=== PATIENT | female | born 1960 | race Caucasian/White ===

== ENCOUNTER 2016-12-01 01:54 | Emergency (ER) | payer OTHER ==
[~2016-12-01] VITALS: Ht 170.2 cm; Wt 75.3 kg
[~2016-12-01 01:54] MED LIST: ALPRAZOLAM0.5 MG PO; ALPRAZOLAM1 MG PO; ATORVASTATIN CA10 MG PO; CALCIUM 600 +1 EAC6 PO; CIPRO500 MG PO; CLARITIN10 M2; CLINDAMYCIN HC300 MG PO; CYCLOBENZAPRINE10 MG PO; DAILY VITAMIN1 EAC2 PO; FLEXERIL5 MG PO; GABAPENTIN100 MG PO; GABAPENTIN300 MG PO; GLIPIZIDE XL10 MG PO; GLIPIZIDE XL5 MG PO; HYDROCHLOROTHIA25 MG PO; HYDROCODON-ACE1 EAC8 PO; LISINOPRIL40 MG PO; MACROBID 100 M100 MG PO; NORCO 10-325 T1 EACH PO; NORCO 5-325 TA1 EACH PO; OMEGA 3 1,0001 EACH PO; PRILOSEC10 MG; PRILOSEC20 MG PO; PROPRANOLOL HCL40 MG PO; PYRIDIUM200 MG PO; TIZANIDINE HCL4 MG PO; VALIUM5 MG PO
[2016-12-01] MEDS ORDERED: ROPINIROLE HCL1 MG PO (02:22)
[2016-12-01] MEDS ORDERED: ZOFRAN ODT4 MG PO (02:23)
[2016-12-01] MEDS ORDERED: KLOR-CON 1010 MEQ PO (02:26)
== END 2016-12-01 04:50 | disposition home or self-care (01) ==
LOC: ED 01:54
DX: E11.9 Type 2 diabetes mellitus without complications (principal); F15.20 Other stimulant dependence, uncomplicated; I10 Essential (primary) hypertension; E78.00 Pure hypercholesterolemia, unspecified; Z88.6 Allergy status to analgesic agent; Z91.040 Latex allergy status; Z88.8 Allergy status to other drugs, medicaments and biological substances; Z88.1 Allergy status to other antibiotic agents; Z79.899 Other long term (current) drug therapy
CPT/HCPCS: 80053; 81001; 85025; 96360; 99283; J7030

== ENCOUNTER 2018-11-21 11:36 | Emergency (ER) | payer OTHER ==
[~2018-11-21] VITALS: Ht 170.2 cm; Wt 79.4 kg
[~2018-11-21 11:36] MED LIST changes: +ADVOCATE SYRIN1 EAC1 MISC; +DOXYCYCLINE HY100 MG PO; +GUAIFEN-CODEINE10 ML PO; +KLOR-CON 1010 MEQ PO; +MEDROL4 M1 PO; +NOVOLOG FL100 UNIT/1 SUB-Q; +ROPINIROLE HCL1 MG PO; +VENTOLIN HFA18 GM INH; +ZOFRAN ODT4 MG PO
--- OUTSIDE RECORDS SUMMARY | 2018-11-21 11:40 | XMS ---
PreManage Notification: AYSHA HENRIQUEZ Security Product Representative Events No recent Security Events currently on file CRITERIA MET - [facility] CARE PROVIDERS There are no care providers on record at this time. Svetlana has no Care Guidelines for this patient. Addison VISIT COUNT (12 MO.) 1 [facility] ED 3 NE[facility]ardo TOTAL 4 NOTE: Visits indicate total known visits. ED/UCC VISIT TRACKING (12 MO.) 11/21/2018 11:38 [facility] [place] TYPE: Emergency COMPLAINT: - BLOOD IN URINE 03/20/2018 20:06 [facility] TYPE: Emergency COMPLAINT: - COUGH DIAGNOSES: - Allergy status to other drugs, medicaments and biological substances status - Latex allergy status - Essential (primary) hypertension - Type 2 diabetes mellitus without complications - Personal history of urinary (tract) infections - Allergy status to other antibiotic agents status - senior living (current) use of inhaled steroids - senior living (current) use of insulin - Cough - Bronchitis, not specified as acute or chronic - Allergy status to analgesic agent status - Other laborer marine terminal (current) drug therapy 03/13/2018 15:48 [facility] TYPE: Emergency COMPLAINT: - COLD SYMPTOMS/LOWER BACK PAIN DIAGNOSES: - Type 2 diabetes mellitus without complications - Allergy status to other antibiotic agents status - Other mcc (current) drug therapy - Pure hypercholesterolemia, unspecified - Bronchitis, not specified as acute or chronic - Allergy status to other drugs, medicaments and biological substances status - Cough - Allergy status to analgesic agent status - Latex allergy status - Essential (primary) hypertension 03/08/2018 20:26 [facility] TYPE: Emergency DIAGNOSES: - Contact with and (suspected) exposure to environmental tobacco smoke (acute) (chronic) - Acute bronchitis due to other specified organisms - Rash - COUGH INPATIENT VISIT TRACKING (12 MO.) No inpatient visits to display in this time frame [id number]
[2018-11-21] MEDS ORDERED: KEFLEX500 MG PO (14:16)
[2018-11-21] MEDS ORDERED: DIFLUCAN150 MG PO (14:16)
== END 2018-11-21 14:35 | disposition home or self-care (01) ==
LOC: ED 11:36
DX: N39.0 Urinary tract infection, site not specified (principal); E11.9 Type 2 diabetes mellitus without complications; I10 Essential (primary) hypertension; Z88.1 Allergy status to other antibiotic agents; Z88.6 Allergy status to analgesic agent; Z91.040 Latex allergy status; Z88.8 Allergy status to other drugs, medicaments and biological substances; Z79.4 Long term (current) use of insulin; Z79.899 Other long term (current) drug therapy
CPT/HCPCS: 81001; 87077; 87088; 87186; 99283

== ENCOUNTER 2019-01-24 12:33 | Emergency (ER) | payer OTHER ==
[~2019-01-24] VITALS: Ht 170.2 cm; Wt 74.8 kg
--- OUTSIDE RECORDS SUMMARY | ~2019-01-24 | XMS | Clinical Summary ---
Demographics + + + | Address | [address] | | | [place] [address] | + + + | Home Phone | | + + + | Preferred Language | Unknown | + + + | Marital Status | Single | + + + | Yazdanism Affiliation | [id number] | + + + | Race | Unknown | + + + | Ethnic Group | Unknown | + + + Author + + + | Author | [facility] (Historical as of | | | 11-15-18) | + + + | Organization | [facility] (Historical as of | | | 11-15-18) | + + + | Address | Unknown | + + + | Phone | Unavailable | + + + Support + + +---------+ + | Name | Relationship | Address | Phone | + + +---------+ + | Esha Jenkins | ECON | Unknown | | + + +---------+ + Care Team Providers + +------+ + | Care Genetics Teacher Name | Role | Phone | + +------+ + | None, Per Pt | PP | [phone] | + +------+ + Allergies + + + + + + | Active Allergy | Reactions | Severity | Noted | Comments | | | | | Date | | + + + + + + | Cefaclor | Swelling | Medium | 03/08/20 | Throat swelling | | | | | 18 | | + + + + + + | Morphine | Swelling | High | 03/08/20 | Throat swelling | | | | | 18 | | + + + + + + | Nsaids | Swelling | High | 03/08/20 | Throat closes | | | | | 18 | | + + + + + + | Prednisone | Rash | Medium | 03/08/20 | | | | | | 18 | | + + + + + + Current Medications + + +---------+---------+------+------+-------+ | Prescription | Sig. | Disp. | Refills | Star | End | Statu | | | | | | t | Date | s | | | | | | Date | | | + + +---------+---------+------+------+-------+ | lisinopril | Take 10 mg by mouth | | | | | Activ | | (ZESTRIL) 10 MG | daily. | | | | | e | | tablet | | | | | | | + + +---------+---------+------+------+-------+ | propranolol | Take 10 mg by mouth | | | | | Activ | | (INDERAL) 10 MG | 3 (three) times | | | | | e | | tablet | daily. | | | | | | + + +---------+---------+------+------+-------+ | predniSONE | Take 1 mg by mouth | | | | | Activ | | (DELTASONE) 1 MG | daily with | | | | | e | | tablet | breakfast. | | | | | | + + +---------+---------+------+------+-------+ | insulin glargine | Inject into the | | | | | Activ | | (LANTUS) 100 UNIT/ML | skin nightly. | | | | | e | | injection | | | | | | | + + +---------+---------+------+------+-------+ | benzonatate | Take 100 mg by mouth | | | | | Activ | | (TESSALON) 100 MG | 3 (three) times | | | | | e | | capsule | daily as needed for | | | | | | | | Cough. | | | | | | + + +---------+---------+------+------+-------+ | | Take 12.5 mg by | | | | | Activ | | hydrochlorothiazide | mouth daily. | | | | | e | | (HYDRODIURIL) 12.5 | | | | | | | | MG tablet | | | | | | | + + +---------+---------+------+------+-------+ | omeprazole | Take 10 mg by mouth | | | | | Activ | | (PRILOSEC) 10 MG | every morning before | | | | | e | | capsule | breakfast. | | | | | | + + +---------+---------+------+------+-------+ | albuterol | Inhale 1-2 puffs | 1 | 0 | 12/0 | 12/0 | Activ | | (PROVENTIL | into the lungs every | Inhaler | | 8/20 | 8/20 | e | | HFA;VENTOLIN HFA) | 4 (four) hours as | | | 18 | 19 | | | 108 (90 Base) | needed for Wheezing | | | | | | | MCG/ACT inhaler | or Shortness of | | | | | | | | Breath. | | | | | | + + +---------+---------+------+------+-------+ Active Problems Not on file Social History + +-------+ +--------+------+ | Tobacco Use | Types | Packs/Day | Years | Date | | | | | Used | | + +-------+ +--------+------+ | Never Smoker | | | | | + +-------+ +--------+------+ + +---+---+---+ | Smokeless Tobacco: | | | | | Never Used | | | | + +---+---+---+ + + +---------+ + | Alcohol Use | Drinks/We | oz/Week | Comments | | | ek | | | + + +---------+ + | No | | | | + + +---------+ + + + + | Sex Assigned at | Date Recorded | | | | + + + | Not on file | | + + + Last Filed Vital Signs + + + + | Vital Sign | Reading | Time Taken | + + + + | Blood Pressure | 164/73 | 03/08/2018 10:18 PM PST | + + + + | Pulse | 98 | 03/08/2018 10:18 PM PST | + + + + | Temperature | 37.1 C (98.8 F) | 03/08/2018 10:18 PM PST | + + + + | Respiratory Rate | 24 | 03/08/2018 10:18 PM PST | + + + + | Oxygen Saturation | 95% | 03/08/2018 10:18 PM PST | + + + + | Inhaled Oxygen | - | - | | Concentration | | | + + + + | Weight | 83.9 kg (184 lb 15.5 | 03/08/2018 8:46 PM PST | | | oz) | | + + + + | Height | 170.2 cm (5' 7") | 03/08/2018 8:46 PM PST | + + + + | Body Mass Index | 28.97 | 03/08/2018 8:46 PM PST | + + + + Plan of Treatment Not on file Results Not on filefrom Last 3 Months Insurance + +--------+ +------+-------+ + | Payer | Benefi | Subscriber | Type | Phone | Address | | | t Plan | ID | | | | | | / | | | | | | | Group | | | | | + +--------+ +------+-------+ + | MEDICAID | [place] | [id number] | | | [address] | | | N | | | | [place] | | | [place] | | | | [phone] | | | DAMPER MAKER | | | | | + +--------+ +------+-------+ + + +--------+ +--------+ + + | Guarantor Name | Accoun | Relation to | Date | Phone | Billing Address | | | t Type | Patient | of | | | | | | | | | | + +--------+ +--------+ + + | SABINE MADRIGAL | Person | Self [birth year] Home: | [address] | | | al/Fam | | 1960 | [phone] | [place] [address] | | | [place]urie | | | [phone] | | + +--------+ +--------+ + +
--- OUTSIDE RECORDS SUMMARY | ~2019-01-24 | XMS | Clinical Summary ---
Demographics + + + | Address | [address] | | | [place] [address] | + + + | Home Phone | | + + + | Preferred Language | Unknown | + + + | Marital Status | Single | + + + | Voodoo Affiliation | 1041 | + + + | Race | Unknown | + + + | Ethnic Group | Unknown | + + + Author + + + | Author | [facility] (Historical as of | | | 11-15-18) | + + + | Organization | [facility] (Historical as of | | | 11-15-18) [...] Team Providers + +------+ + | Care Timber Bucker Name | Role | Phone | + [...] +------+-------+ + | MEDICAID | [place] | [id number] | | | [address] | | | N | | | | [place] | | | [place] | | | | [phone] | | | MEDICAL CARE EVALUATION SPECIALIST | | | | | + +--------+ [...] | 1960 | [phone] | [place] [address] | | | [place] | | | [phone] | | + +--------+ +--------+ + +
[~2019-01-24 12:33] MED LIST changes: +DIFLUCAN150 MG PO; +KEFLEX500 MG PO
--- OUTSIDE RECORDS SUMMARY | 2019-01-24 12:36 | XMS ---
PreManage Notification: AYSHA HENRIQUEZ Security Electrical Maintenance Supervisor Events No recent Security Events currently on file [facility] There are no care providers on record at this time. Svetlana has no Care Guidelines for this patient. Addison VISIT COUNT (12 MO.) 1 [facility] ED 4 NELL Bernardo TOTAL 5 NOTE: Visits indicate total known visits. ED/C VISIT TRACKING (12 MO.) 01/24/2019 12:33 [facility] [place] TYPE: Emergency COMPLAINT: - HIGH BLOOD SUGAR 11/21/2018 11:38 [facility] [place] TYPE: Emergency COMPLAINT: - BLOOD IN URINE DIAGNOSES: - Essential (primary) hypertension - [facility]FP (current) use of insulin - Latex allergy status - 1 Type 2 diabetes mellitus without complications - Urinary tract infection, site not specified - Allergy status to oth drug/meds/biol subst status - Allergy status to other antibiotic agents status - Other prism measurer (current) drug therapy - Dysuria - Allergy status to analgesic agent status 03/20/2018 20:06 [facility] [place] TYPE: Emergency COMPLAINT: - COUGH DIAGNOSES: - Allergy status to oth drug/meds/biol subst status - Latex allergy status - Essential (primary) hypertension - 1 Type 2 diabetes mellitus without complications - Personal history of urinary (tract) infections - Allergy status to other antibiotic agents status - wicker worker (current) use of inhaled steroids - [facility]FP (current) use of insulin - Cough - Bronchitis, not specified as acute or chronic - Allergy status to analgesic agent status - Other prism measurer (current) drug therapy 03/13/2018 15:48 [facility] [place] TYPE: Emergency COMPLAINT: - COLD SYMPTOMS/LOWER BACK PAIN DIAGNOSES: - 1 Type 2 diabetes mellitus without complications - Allergy status to other antibiotic agents status - Other longterm (current) drug therapy - Pure hypercholesterolemia, unspecified - Bronchitis, not specified as acute or chronic - Allergy status to oth drug/meds/biol subst status - Cough - Allergy status to analgesic agent status - Latex allergy status - Essential (primary) hypertension 03/08/2018 20:26 [facility] TYPE: Emergency DIAGNOSES: - Cntct w and expsr to environ tobacco smoke (acute) (chronic) - Acute bronchitis due to other specified organisms - Rash - COUGH INPATIENT VISIT TRACKING (12 MO.) No inpatient visits to display in this time frame [id number]
[2019-01-24] MEDS ORDERED: LANTUS100 UNITS/ SUB-Q (12:46)
[2019-01-24] MEDS ORDERED: CYCLOBENZAPRINE10 MG PO (12:47)
== END 2019-01-24 14:49 | disposition home or self-care (01) ==
LOC: ED 12:33
DX: E11.65 Type 2 diabetes mellitus with hyperglycemia (principal); I10 Essential (primary) hypertension; Z88.1 Allergy status to other antibiotic agents; Z88.6 Allergy status to analgesic agent; Z91.040 Latex allergy status; Z88.8 Allergy status to other drugs, medicaments and biological substances; Z79.4 Long term (current) use of insulin; Z79.899 Other long term (current) drug therapy
CPT/HCPCS: 80053; 81001; 85025; 96374; 99283-25; J1815; J7030

== ENCOUNTER 2021-03-24 17:34 | Emergency (ER) | payer MEDICARE, OTHER ==
[~2021-03-24] VITALS: Ht 170.2 cm; Wt 79.8 kg
[~2021-03-24 17:34] MED LIST changes: +HYDROXYZINE PAM50 MG PO; +KEFLEX500 MG; +LANTUS100 UNITS/ SUB-Q; +OZEMPIC0.25 MG/0. SUB-Q; +PRILOSEC OTC20 MG PO
--- OUTSIDE RECORDS SUMMARY | 2021-03-24 17:40 | XMS ---
PreManage Notification: AYSHA PETTIT Security Structural Steel Equipment Erector Events No recent Security Events currently on file CRITERIA MET - ED - Positive COVID-19 Lab Result - [facility] CARE PROVIDERS [facility] 01/26/2019- PHONE: [phone] Svetlana has no Care Guidelines for this patient. Care History Medical/Surgical 01/26/2019 [facility] \T\middot;\T\nbsp; PATIENT- [facility] ELIG[facility] \T\middot;\T\nbsp; PLEASE REFER PATIENT TO [facility] FOR NON EMERGENT MEDICAL NEEDS. \T\middot;\ T\nbsp; [facility] CAN SEE PATIENTS SAME DAY FOR APTS IF PATIENT CALLS FIRST THING IN THE MORNING. E.D. VISIT COUNT (12 MO.) 1 [facility] TOTAL 1 NOTE: Visits indicate total known visits. ED/UCC VISIT TRACKING (12 MO.) 03/24/2021 17:36 [facility] TYPE: Emergency COMPLAINT: - GENITAL PROBLEM INPATIENT VISIT TRACKING (12 MO.) No inpatient visits to display in this time frame [id number]
[2021-03-24] MEDS ORDERED: TRULICITY0.75 MG/0. (18:39)
[2021-03-24] MEDS ORDERED: HYDROCODON-ACE1 EA10 PO (20:47)
[2021-03-24] MEDS ORDERED: METRONIDAZOLE500 MG PO (20:47)
== END 2021-03-24 21:22 | disposition home or self-care (01) ==
LOC: ED 17:34
DX: N76.0 Acute vaginitis (principal); E11.9 Type 2 diabetes mellitus without complications; Z88.6 Allergy status to analgesic agent; Z88.8 Allergy status to other drugs, medicaments and biological substances; Z88.1 Allergy status to other antibiotic agents; Z88.5 Allergy status to narcotic agent; Z91.040 Latex allergy status; Z79.899 Other long term (current) drug therapy; Z79.4 Long term (current) use of insulin
CPT/HCPCS: 87210; 99283

== ENCOUNTER 2021-09-17 20:15 | Emergency (ER) | payer MEDICARE, OTHER ==
[~2021-09-17] VITALS: Ht 167.6 cm; Wt 83.0 kg
[~2021-09-17 20:15] MED LIST changes: +HYDROCODON-ACE1 EA10 PO; +LANTUS SOL100 UNIT/1 SUB-Q; -LANTUS100 UNITS/ SUB-Q; +METRONIDAZOLE500 MG PO; +TRULICITY0.75 MG/0.
[2021-09-18] MEDS ORDERED: ALOGLIPTIN25 MG PO (00:05)
[2021-09-18] MEDS ORDERED: LANTUS SOL100 UNIT/1 SUB-Q (00:05)
== END 2021-09-18 00:48 | disposition home or self-care (01) ==
LOC: ED 20:15
DX: Z76.0 Encounter for issue of repeat prescription (principal); I10 Essential (primary) hypertension; E11.9 Type 2 diabetes mellitus without complications; Z79.4 Long term (current) use of insulin; Z88.8 Allergy status to other drugs, medicaments and biological substances; Z88.6 Allergy status to analgesic agent; Z91.040 Latex allergy status
CPT/HCPCS: 99282; A9270

== ENCOUNTER 2021-12-26 17:56 | Emergency (ER) | payer MEDICARE, OTHER ==
[~2021-12-26] VITALS: Ht 167.6 cm; Wt 78.2 kg
[~2021-12-26 17:56] MED LIST changes: +ALOGLIPTIN25 MG PO
[2021-12-26] MEDS ORDERED: HUMULIN N100 UNIT/3 SUB-Q (18:17)
[2021-12-26] MEDS ORDERED: DOXYCYCLINE HY100 M3 PO (19:02)
== END 2021-12-26 19:18 | disposition home or self-care (01) ==
LOC: ED 17:56
DX: S61.213A Laceration without foreign body of left middle finger without damage to nail, initial encounter (principal); S01.00XA Unspecified open wound of scalp, initial encounter; L08.9 Local infection of the skin and subcutaneous tissue, unspecified; I10 Essential (primary) hypertension; E11.9 Type 2 diabetes mellitus without complications; Z88.6 Allergy status to analgesic agent; Z91.040 Latex allergy status; Z88.8 Allergy status to other drugs, medicaments and biological substances; Z88.5 Allergy status to narcotic agent; Z79.899 Other long term (current) drug therapy; Z79.4 Long term (current) use of insulin; W26.8XXA Contact with other sharp object(s), not elsewhere classified, initial encounter
CPT/HCPCS: 99282

== ENCOUNTER 2022-01-19 15:17 | Emergency (ER) | payer MEDICARE, OTHER ==
[~2022-01-19] VITALS: Ht 167.6 cm; Wt 80.6 kg
[~2022-01-19 15:17] MED LIST changes: +DOXYCYCLINE HY100 M3 PO; +HUMULIN N100 UNIT/3 SUB-Q
--- OUTSIDE RECORDS SUMMARY | 2022-01-19 15:24 | XMS ---
PreManage Notification: JULYAYSHA Security Cable Engineer Events No recent Security Events currently on file CRITERIA MET - [facility] - 2 Visits in 30 Days CARE PROVIDERS [facility] 01/26/2019-[facility] PHONE: [phone] Svetlana has no Care Guidelines for this patient. Care History Medical/Surgical 01/26/2019 [facility] \T\middot;\T\nbsp; PATIENT- [facility] ELIGIBLE \T\middot;\T\nbsp; PLEASE REFER PATIENT TO [facility] FOR NON EMERGENT MEDICAL NEEDS. \T\middot;\ T\nbsp; [facility] CAN SEE PATIENTS SAME DAY FOR APTS IF PATIENT CALLS FIRST THING IN THE MORNING. E.D. VISIT COUNT (12 MO.) 4 [facility] TOTAL 4 NOTE: Visits indicate total known visits. ED/UCC VISIT TRACKING (12 MO.) 01/19/2022 15:17 [facility] [place] TYPE: Emergency COMPLAINT: - COUGH 12/26/2021 17:57 [facility] [place] TYPE: Emergency COMPLAINT: - SKIN PROBLEM DIAGNOSES: - Local infection of the skin and subcutaneous tissue, unspecified - Allergy status to other drugs, medicaments and biological substances - buttermaker (current) use of insulin - Essential (primary) hypertension - Allergy status to narcotic agent - Laceration without foreign body of left middle finger without damage to nail, initial encounter - Unspecified open wound of scalp, initial encounter - Type 2 diabetes mellitus without complications - Contact with other sharp object(s), not elsewhere classified, initial encounter - Allergy status to analgesic agent - Latex allergy status - Other senior living (current) drug therapy 09/17/2021 20:15 [facility] [place] TYPE: Emergency COMPLAINT: - MEDICATION REFILL DIAGNOSES: - senior living (current) use of insulin - Essential (primary) hypertension - Encounter for issue of repeat prescription - Allergy status to analgesic agent - Allergy status to other drugs, medicaments and biological substances - Latex allergy status - Type 2 diabetes mellitus without complications 03/24/2021 17:36 [facility] [place] TYPE: Emergency COMPLAINT: - GENITAL PROBLEM DIAGNOSES: - Allergy status to other drugs, medicaments and biological substances - Latex allergy status - Allergy status to analgesic agent - Lower abdominal pain, unspecified - Other senior living (current) drug therapy - Allergy status to narcotic agent - Allergy status to other antibiotic agents - Acute vaginitis - Type 2 diabetes mellitus without complications - senior living (current) use of insulin INPATIENT VISIT TRACKING (12 MO.) No inpatient visits to display in this time frame [id number]
[2022-01-19] MEDS ORDERED: AZITHROMYCIN250 MG PO (17:58)
== END 2022-01-19 18:19 | disposition home or self-care (01) ==
LOC: ED 15:17
DX: J45.909 Unspecified asthma, uncomplicated (principal); J06.9 Acute upper respiratory infection, unspecified; E11.9 Type 2 diabetes mellitus without complications; I10 Essential (primary) hypertension; E78.00 Pure hypercholesterolemia, unspecified; Z91.040 Latex allergy status; Z88.6 Allergy status to analgesic agent; Z88.1 Allergy status to other antibiotic agents; Z88.8 Allergy status to other drugs, medicaments and biological substances; Z79.899 Other long term (current) drug therapy
CPT/HCPCS: 99283

== ENCOUNTER 2022-03-24 09:50 | Emergency (ER) | payer MEDICARE, OTHER ==
[~2022-03-24] VITALS: Ht 167.6 cm; Wt 80.6 kg
[~2022-03-24 09:50] MED LIST changes: +AZITHROMYCIN250 MG PO
--- OUTSIDE RECORDS SUMMARY | 2022-03-24 09:56 | XMS ---
PreManage Notification: JULYAYSHA Security Logistics Team Leader Events No recent Security Events currently on file CRITERIA MET - [facility] - 2 Visits in 30 Days CARE PROVIDERS [facility]/[place] 01/26/2019-[facility] PHONE: [phone] Svetlana has no Care Guidelines for this patient. Care History Medical/Surgical 01/26/2019 [facility] \T\middot;\T\nbsp; PATIENT- [facility] ELIGIBLE \T\middot;\T\nbsp; PLEASE REFER PATIENT TO [facility] FOR NON EMERGENT MEDICAL NEEDS. \T\middot;\ T\nbsp; [facility] CAN SEE PATIENTS SAME DAY FOR APTS IF PATIENT CALLS FIRST THING IN THE MORNING. [facility]. [facility] ([facility] MO.) [address] [facility] [facility] 6 NOTE: Visits indicate total known visits. ED/UCC VISIT TRACKING (12 MO.) 03/24/2022 09:50 [facility] TYPE: Emergency COMPLAINT: - POSSIBLE STREP THROAT 02/24/2022 21:14 [facility] TYPE: Emergency DIAGNOSES: - flank pain - Back Pain - Pain in thoracic spine - Abdominal Pain 01/19/2022 15:17 [facility] [place] TYPE: Emergency COMPLAINT: - COUGH DIAGNOSES: - Allergy status to other drugs, medicaments and biological substances - Allergy status to other antibiotic agents - Acute upper respiratory infection, unspecified - Latex allergy status - Allergy status to analgesic agent - Essential (primary) hypertension - Cough, unspecified - Other termite exterminator (current) drug therapy - Unspecified asthma, uncomplicated - Pure hypercholesterolemia, unspecified - Type 2 diabetes mellitus without complications 12/26/2021 17:57 [facility] [place] TYPE: Emergency COMPLAINT: - SKIN PROBLEM DIAGNOSES: - Local infection of the skin and subcutaneous tissue, unspecified - Allergy status to other drugs, medicaments and biological substances - intermission coordinator (current) use of insulin - Essential (primary) [...] agent - Latex allergy status - Other termite exterminator (current) drug therapy 09/17/2021 20:15 [facility] TYPE: Emergency COMPLAINT: - MEDICATION REFILL DIAGNOSES: - intermission coordinator (current) use of insulin - Essential (primary) hypertension - Encounter for issue of repeat prescription - Allergy status to analgesic agent - Allergy status to other drugs, medicaments and biological substances - Latex allergy status - Type 2 diabetes mellitus without complications 03/24/2021 17:[address] [facility] TYPE: Emergency COMPLAINT: - GENITAL PROBLEM DIAGNOSES: - Allergy status to other drugs, medicaments and biological substances - Latex allergy status - Allergy status to analgesic agent - Lower abdominal pain, unspecified - Other termite exterminator (current) drug therapy - Allergy status to narcotic agent - Allergy status to other antibiotic agents - Acute vaginitis - Type 2 diabetes mellitus without complications - intermission coordinator (current) use of insulin INPATIENT VISIT TRACKING (12 MO.) No inpatient visits to display in this time frame [id number]
== END 2022-03-24 12:38 | disposition home or self-care (01) ==
LOC: ED 09:50
DX: J02.9 Acute pharyngitis, unspecified (principal); E11.9 Type 2 diabetes mellitus without complications; I10 Essential (primary) hypertension; Z88.6 Allergy status to analgesic agent; Z91.040 Latex allergy status; Z88.8 Allergy status to other drugs, medicaments and biological substances; Z88.5 Allergy status to narcotic agent; Z79.899 Other long term (current) drug therapy
CPT/HCPCS: 87081; 87880; 99283

== ENCOUNTER 2022-12-16 13:11 | Emergency (ER) | payer MEDICARE, MEDICAID ==
[~2022-12-16] VITALS: Ht 167.6 cm; Wt 80.8 kg
[~2022-12-16 13:11] MED LIST changes: -PROPRANOLOL HCL40 MG PO; +PROPRANOLOL HCL80 M1 PO
[2022-12-16] MEDS ORDERED: HYDROCODON-ACE1 EA10 PO (13:28)
[2022-12-16] MEDS ORDERED: PERIOGARD473 ML MM (13:28)
[2022-12-16] MEDS ORDERED: HYDROCHLOROTHIA25 MG PO (13:28)
[2022-12-16 15:46] VITALS: BP 157/93
== END 2022-12-16 15:46 | disposition home or self-care (01) ==
LOC: ED 13:11
DX: E11.9 Type 2 diabetes mellitus without complications (principal); Z76.0 Encounter for issue of repeat prescription; Z79.4 Long term (current) use of insulin; Z88.6 Allergy status to analgesic agent; Z88.8 Allergy status to other drugs, medicaments and biological substances; Z91.040 Latex allergy status
CPT/HCPCS: 99282; J1815

== ENCOUNTER 2024-03-22 18:03 | Emergency (ER) | payer OTHER ==
[~2024-03-22] VITALS: Ht 167.6 cm; Wt 81.1 kg
[~2024-03-22 18:03] MED LIST changes: +AIRBORNE IMMUN1 EACH PO; +ARTIFICIAL TEAR15 M6 OU; +ATORVASTATIN CA20 MG PO; +CALCIUM 600 MG1 EAC7 PO; -CLARITIN10 M2; +CLARITIN10 MG PO; +DERMAFIX113 GM TOP; +DICLOFENAC SODI50 GM TOP; +DULERA 200 MCG/13 GM INH; +FLONASE ALLERG9.9 ML NAS; +HAIR, SKIN & N1 EACH PO; +LISINOPRIL20 MG PO; +MAGOX 400400 MG PO; +MOUNJARO10 MG/0.5 SUB-Q; +OMEPRAZOLE20 MG PO; +PATADAY5 ML OU; +PERIOGARD473 ML MM; +PROPRANOLOL HCL80 MG PO; +TYLENOL325 MG PO; +VITAMIN B-121000 MCG PO
[2024-03-22] MEDS ORDERED: NITROGLYCERIN 0.4 MG SUBL SL PRN (18:15)
[2024-03-22] MEDS ORDERED: ALPRAZOLAM0.5 MG PO (18:19)
[2024-03-22] MEDS ORDERED: PANTOPRAZOLE SODIUM 40 MG/10 ML VIAL IV ONE (18:30)
[2024-03-22] MEDS ORDERED: ondansetron HCL 4 MG/2 ML VIAL IV ONE (18:30)
[2024-03-22] MEDS ORDERED: HYDROmorphone HCL 1 MG/ML SYR IV ONE (18:30)
[2024-03-22] MEDS ORDERED: SODIUM CHLORIDE 0.9% 1,000 ML IV ONE (18:30)
[2024-03-22 18:45] LABS: BASOPHILS 0.4 % (0-2); HEMATOCRIT 38.2 % (35.0-50.0); HEMOGLOBIN 13.2 g/dL (12.0-18.0); LYMPHOCYTES 34.8 % (24-44); MCH 30.5 (27-36); MCHC 34.5 g/dl (30-36); MCV 88.6 fl (81-99); MONOCYTES 7.3 % (0-12); NEUTROPHILS 54.5 % (39-80); PLATELET COUNT 390 K/uL (140-440); RBC 4.31 M/ul (4.3-5.7); RDW 13.8 (10.5-15.0)
[2024-03-22 19:02] LABS: ALBUMIN 3.8 g/dL (3.4-5.0); ANION GAP 13.7 (7-21); BILIRUBIN, TOTAL 0.4 ng/dL (0.2-1.0); BUN/CREATININE RATIO 11.3 (6.0-28.6); CALCIUM 9.2 mg/dL (8.5-10.1); CREATININE, SERUM 1.15 mg/dL (0.55-1.02); MAGNESIUM 1.6 mg/dL (1.8-2.4); POTASSIUM 3.7 mmol/L (3.5-5.1); PROTEIN, TOTAL 7.6 g/dL (6.4-8.2)
[2024-03-22 19:03] LABS: INR 0.97 (0.80-1.30); PARTIAL THROMBOPLASTIN TIME 24.8 Sec (22.9-41.3); PROTIME 12.2 Sec (11.2-14.2)
[2024-03-22] MEDS ORDERED: ONDANSETRON ODT4 MG SL (19:30)
[2024-03-22] MEDS ORDERED: PERCOCET 5-3251 EACH PO (19:30)
[2024-03-22] MEDS ORDERED: LIDOCAINE & ANTACID 35 ML BTL PO ONE (19:30)
[2024-03-22] MEDS ORDERED: ONDANSETRON 4 MG HOME.PACK SL ONE (19:30)
[2024-03-22] MEDS ORDERED: OXYCODONE/ACETAMINOPHEN 1 TAB HOME.PACK PO ONE (19:30)
[2024-03-22 20:11] VITALS: BP 134/78
--- NOTE | 2024-03-22 20:24 | EKG ---
[facility] [address] [facility] [place], [place] [address] Signed Normal sinus rhythm Normal ECG When compared with ECG of 18-FEB-2024 05:25, No significant change was found Confirmed by Kayli Clark MD ([id number]) on 03/22/2024 8:23:49 PM Electronically Signed By: KAYLI CLARK MD 03/22/242023 PATIENT NAME: AYSHA PETTIT Electrocardiogram DATE OF : 58 PHYSICIAN: KAYLI CLARK MD REPORT #: [id number] REPORT IS CONFIDENTIAL AND NOT TO BE RELEASED WITHOUT AUTHORIZATION
== END 2024-03-22 20:12 | disposition home or self-care (01) ==
LOC: ED 18:03
PROVIDERS: Emergency Medicine
DX: R07.9 Chest pain, unspecified (principal); R10.13 Epigastric pain; R10.11 Right upper quadrant pain; I10 Essential (primary) hypertension; E78.00 Pure hypercholesterolemia, unspecified; E11.42 Type 2 diabetes mellitus with diabetic polyneuropathy; Z88.2 Allergy status to sulfonamides; Z91.040 Latex allergy status; Z88.6 Allergy status to analgesic agent; Z88.1 Allergy status to other antibiotic agents; Z88.8 Allergy status to other drugs, medicaments and biological substances; Z88.5 Allergy status to narcotic agent; Z79.4 Long term (current) use of insulin; Z79.899 Other long term (current) drug therapy
CPT/HCPCS: 36415; 71045; 76705; 80053; 83690; 83735; 83880; 84484; 85025; 85610; 85730; 96374; 96375; 99285-25; A9270; J1171; J2405; J2470; J7030

== ENCOUNTER 2024-03-24 16:32 | Emergency (ER) | payer MEDICARE ==
[~2024-03-24] VITALS: Ht 167.6 cm; Wt 80.5 kg
[~2024-03-24 16:32] MED LIST changes: +ONDANSETRON ODT4 MG SL; +PERCOCET 5-3251 EACH PO
[2024-03-24 17:25] LABS: BILIRUBIN, URINE NEGATIVE (negative); BLOOD/HGB, URINE NEGATIVE (Negative); KETONE, URINE NEGATIVE (Negative); LEUK ESTERASE, URINE NEGATIVE (negative); NITRITE, URINE NEGATIVE (negative); PH, URINE 5.5 (5-7)
[2024-03-24 17:41] LABS: AMPHETAMINES, URINE NEGATIVE (NEGATIVE); BARBITURATES, URINE NEGATIVE (NEGATIVE); BENZODIAZEPINE, URINE NEGATIVE (NEGATIVE); BUPRENORPHINE, URINE NEGATIVE (NEGATIVE); CANNABINOID, URINE NEGATIVE (NEGATIVE); COCAINE, URINE NEGATIVE (NEGATIVE); ECSTASY, URINE NEGATIVE (NEGATIVE); FENTANYL, URINE NEGATIVE (NEGATIVE); METHADONE, URINE NEGATIVE (NEGATIVE); OPIATES, URINE NEGATIVE (NEGATIVE); OXYCODONE, URINE NEGATIVE (NEGATIVE); PHENCYCLIDINE, URINE NEGATIVE (NEGATIVE)
[2024-03-24 18:05] LABS: BASOPHILS 0.4 % (0-2); HEMATOCRIT 35.8 % (35.0-50.0); HEMOGLOBIN 12.3 g/dL (12.0-18.0); LYMPHOCYTES 30.4 % (24-44); MCH 30.4 (27-36); MCHC 34.3 g/dl (30-36); MCV 88.6 fl (81-99); MONOCYTES 6.3 % (0-12); NEUTROPHILS 61.9 % (39-80); PLATELET COUNT 357 K/uL (140-440); RBC 4.05 M/ul (4.3-5.7); RDW 13.7 (10.5-15.0)
[2024-03-24 18:28] LABS: ACETAMINOPHEN 0 ug/mL (10-30); ALBUMIN 3.7 g/dL (3.4-5.0); ALCOHOL, MEDICAL <3 ng/dL (<3); ALKALINE PHOSPHATASE 72 U/L (46-116); ALT (SGPT) 25 U/L (14-59); ANION GAP 12.6 (7-21); AST (SGOT) 21 U/L (15-37); BILIRUBIN, TOTAL 0.6 ng/dL (0.2-1.0); BUN/CREATININE RATIO 11.53 (6.0-28.6); CALCIUM 9.1 mg/dL (8.5-10.1); CARBON DIOXIDE 27 mmol/L (21-32); CHLORIDE 99 mmol/L (98-107); CREATININE, SERUM 1.04 mg/dL (0.55-1.02); GLOMERULAR FILTRATION RATE,EST 60 mL/min (>60); POTASSIUM 3.6 mmol/L (3.5-5.1); PROTEIN, TOTAL 7.4 g/dL (6.4-8.2); SALICYLATE 1.8 mg/dL (2.8-20.0); TSH, 3RD GENERATION 0.911 uIU/mL (0.358-3.740); UREA NITROGEN 12 mg/dL (7-18)
[2024-03-24] MEDS ORDERED: ALPRAZolam 0.5 MG TAB PO ONE (19:45)
[2024-03-24] MEDS ORDERED: IBLOOD GLUCOSE TEST STRIP 1 EA TEST VI SCH (22:45)
[2024-03-24] MEDS ORDERED: Insulin Regular, Human 100 UNIT/ML ML SUB-Q SCH (22:45)
[2024-03-25] MEDS ORDERED: IBLOOD GLUCOSE TEST STRIP 1 EA TEST VI SCH (07:00)
[2024-03-25] MEDS ORDERED: Insulin Regular, Human 100 UNIT/ML ML SUB-Q SCH (07:00)
[2024-03-25] MEDS ORDERED: ACETAMINOPHEN 500 MG TAB PO SCH ×3 (09:01→14:00)
[2024-03-25] MEDS ORDERED: ALPRAZolam 0.5 MG TAB PO PRN (15:00)
[2024-03-25] MEDS ORDERED: MAGNESIUM OXIDE 400 MG TABLET PO ONE (22:45)
[2024-03-25] MEDS ORDERED: PROPRANOLOL HCL 80 MG CAPCR PO SCH (22:45)
[2024-03-26 06:25] VITALS: BP 120/61
[2024-03-26] MEDS ORDERED: lisinopriL 20 MG TAB PO SCH (09:00)
[2024-03-26] MEDS ORDERED: hydroCHLOROthiazide 25 MG TAB PO SCH (09:00)
[2024-03-26] MEDS ORDERED: ATORVASTATIN 20 MG TAB PO SCH (17:00)
--- NOTE | 2024-03-27 12:04 | EKG ---
[facility] [address] [facility] [place], [place] [address] Signed Normal sinus rhythm Normal ECG When compared with ECG of 22-MAR-2024 18:08, No significant change was found Confirmed by Gina Drew MD ([id number]) on 03/27/2024 12:04:35 PM Electronically Signed By: GINA DREW 03/27/24 1204 PATIENT NAME: AYSHA PETTIT OTILIO Electrocardiogram DATE OF : 58 PHYSICIAN: GINA DREW REPORT #: [id number] REPORT IS CONFIDENTIAL AND NOT TO BE RELEASED WITHOUT AUTHORIZATION
== END 2024-03-26 06:23 ==
LOC: ED 16:32
PROVIDERS: Emergency Medicine
DX: R45.851 Suicidal ideations (principal); F22 Delusional disorders; I10 Essential (primary) hypertension; E11.42 Type 2 diabetes mellitus with diabetic polyneuropathy; Z88.6 Allergy status to analgesic agent; Z88.1 Allergy status to other antibiotic agents; Z88.8 Allergy status to other drugs, medicaments and biological substances; Z88.5 Allergy status to narcotic agent; Z91.040 Latex allergy status; Z79.85 Long-term (current) use of injectable non-insulin antidiabetic drugs; Z79.4 Long term (current) use of insulin; Z79.899 Other long term (current) drug therapy
CPT/HCPCS: 36415; 80053; 80307; 81003; 82553; 84443; 85025; 86140; 93005; 93010; 99285; A9270; G0480; J1815; U0002

== ENCOUNTER 2024-06-29 09:08 | Emergency (ER) | payer MEDICARE ==
[~2024-06-29] VITALS: Ht 167.6 cm; Wt 84.1 kg
[2024-06-29] MEDS ORDERED: OLANZapine 10 MG VIAL IM ONE (14:15)
[2024-06-29 14:23] LABS: CANNABINOID, URINE NEGATIVE (NEGATIVE); METHADONE, URINE NEGATIVE (NEGATIVE); PHENCYCLIDINE, URINE NEGATIVE (NEGATIVE)
[2024-06-29 14:36] LABS: AMPHETAMINES, URINE NEGATIVE (NEGATIVE); BARBITURATES, URINE NEGATIVE (NEGATIVE); BENZODIAZEPINE, URINE NEGATIVE (NEGATIVE); BUPRENORPHINE, URINE NEGATIVE (NEGATIVE); COCAINE, URINE NEGATIVE (NEGATIVE); ECSTASY, URINE NEGATIVE (NEGATIVE); FENTANYL, URINE NEGATIVE (NEGATIVE); OPIATES, URINE NEGATIVE (NEGATIVE); OXYCODONE, URINE NEGATIVE (NEGATIVE)
[2024-06-29 14:41] LABS: BASOPHILS 0.6 % (0-2); HEMATOCRIT 39.1 % (35.0-50.0); HEMOGLOBIN 13.5 g/dL (12.0-18.0); LYMPHOCYTES 46.6 % (24-44); MCH 29.4 (27-36); MCHC 34.4 g/dl (30-36); MCV 85.4 fl (81-99); MONOCYTES 6.4 % (0-12); NEUTROPHILS 42.4 % (39-80); PLATELET COUNT 369 K/uL (140-440); RBC 4.57 M/ul (4.3-5.7); RDW 14.3 (10.5-15.0)
[2024-06-29] MEDS ORDERED: OLANZapine 10 MG TAB PO ONE ×2 (14:45→17:00)
[2024-06-29 15:09] LABS: ACETAMINOPHEN 0 ug/mL (10-30); ALCOHOL, MEDICAL <3 ng/dL (<3); SALICYLATE 1.7 mg/dL (2.8-20.0); TSH, 3RD GENERATION 1.593 uIU/mL (0.358-3.740)
[2024-06-29] MEDS ORDERED: ZYPREXA15 MG PO (16:59)
[2024-06-29 17:59] VITALS: BP 148/68
== END 2024-06-29 17:59 | disposition home or self-care (01) ==
LOC: ED 09:08
PROVIDERS: Emergency Medicine
DX: F22 Delusional disorders (principal); E11.9 Type 2 diabetes mellitus without complications; I10 Essential (primary) hypertension; E78.00 Pure hypercholesterolemia, unspecified; Z79.51 Long term (current) use of inhaled steroids; Z79.899 Other long term (current) drug therapy; Z88.6 Allergy status to analgesic agent; Z91.040 Latex allergy status; Z88.1 Allergy status to other antibiotic agents; Z88.5 Allergy status to narcotic agent; Z88.8 Allergy status to other drugs, medicaments and biological substances
CPT/HCPCS: 36415; 70450; 80307; 84443; 85025; 99285-25; A9270; G0480